=== PATIENT | male | born 1990 | race Two or more races ===

== ENCOUNTER 2016-05-23 12:05 | Day surgery (SDC) | payer OTHER ==
[~2016-05-23 12:05] MED LIST: DEXAMETHASONE SOD PHOSPHATE INJ 4 MG/1 ML VIAL ONE; GLYCOPYRROLATE INJ 0.4 MG/2 ML VIAL ONE; LIDOCAINE 2% INJ-PF (20 MG/ML) 10 ML AMPUL ONE; METOCLOPRAMIDE HCL INJ/PF 10 MG/2 ML SDV ONE; NEOSTIGMINE METHYLSULFATE 10 MG/10 ML VIAL ONE; ONDANSETRON HCL INJ/PF 4 MG/2 ML SDV ONE; SUCCINYLCHOLINE CHLORIDE INJ 200 MG/10 ML VIAL ONE
[2016-05-23] MEDS ORDERED: OXYMETAZOLINE HCL 0.05% NASAL SPRAY 15 ML BOTTLE ONE ×2 (12:14→15:05)
[2016-05-23] MEDS ORDERED: LIDOCAINE 1%/EPINEPHRINE INJ 20 ML VIAL ONE ×2 (12:14→15:06)
[2016-05-23] MEDS ORDERED: MIDAZOLAM 2 MG/2 ML INJ ONE ×2 (13:04→15:11)
[2016-05-23] MEDS ORDERED: FENTANYL CITRATE INJ/PF 100 MCG/2 ML AMPUL ONE (13:04)
[2016-05-23] MEDS ORDERED: CARBOXYMETHYLCELLULOSE SOD 0.5% 0.4 ML DROPERETTE ONE (13:04)
[2016-05-23] MEDS ORDERED: DEXAMETHASONE SOD PHOS INJ 10 MG/1 ML VIAL ONE (13:05)
[2016-05-23] MEDS ORDERED: ONDANSETRON HCL INJ/PF 4 MG/2 ML SDV ONE (13:05)
[2016-05-23] MEDS ORDERED: PROPOFOL INJ 200 MG/20 ML VIAL IV ONE ×2 (13:05→15:12)
[2016-05-23] MEDS ORDERED: SUCCINYLCHOLINE CHLORIDE INJ 200 MG/10 ML VIAL ONE (13:05)
[2016-05-23] MEDS ORDERED: DIPHENHYDRAMINE HCL 50 MG/ML VIAL ONE (13:44)
[2016-05-23] MEDS ORDERED: FENTANYL CITRATE INJ/PF 250 MCG/5 ML AMPULE ONE (15:11)
[2016-05-23] MEDS ORDERED: MORPHINE SULFATE 10 MG/ML INJ ONE (15:12)
[2016-05-23] MEDS ORDERED: ACETAMINOPHEN 100 ML IV ONE (15:35)
[2016-05-23] MEDS ORDERED: DIPHENHYDRAMINE HCL 50 MG/ML VIAL IV PRN ×2 (16:14→16:15)
[2016-05-23] MEDS ORDERED: MEPERIDINE HCL/PF INJ 25 MG/1 ML DISP.SYRIN IV PRN ×2 (16:14→16:15)
[2016-05-23] MEDS ORDERED: PROMETHAZINE HCL INJ 25 MG/1 ML VIAL IV PRN ×4 (16:14→16:15)
[2016-05-23] MEDS ORDERED: FENTANYL CITRATE INJ/PF 100 MCG/2 ML AMPUL IV PRN ×6 (16:14→16:15)
[2016-05-23] MEDS ORDERED: MORPHINE SULFATE 10 MG/ML INJ IV PRN ×2 (16:14→16:15)
[2016-05-23] MEDS ORDERED: OXYCODONE-ACETAMINOPHEN 5-325 MG TABLET PO PRN ×4 (16:14→16:15)
[2016-05-23] MEDS ORDERED: HYDROCODONE/ACETAMINOPHEN 5-325 MG TABLET PO PRN ×2 (16:46)
[2016-05-23] MEDS ORDERED: ONDANSETRON HCL INJ/PF 4 MG/2 ML SDV IV PRN (16:47)
--- NOTE | 2016-05-23 16:53 | [facility] OPERATIVE REPORT E ---
[facility] NAME: PAYTON QUIJANO AGE: 26Y DATE OF SURGERY: 05/23/2016 ROOM: PREOPERATIVE DIAGNOSES: NASAL SEPTAL DEVIATION. INFERIOR TURBINATE HYPERTROPHY. POSTOPERATIVE DIAGNOSES: NASAL SEPTAL DEVIATION. INFERIOR TURBINATE HYPERTROPHY. OPERATION: Septoplasty. Bilateral submucous reduction of the inferior turbinate soft tissue. Bilateral therapeutic outfracture of the inferior turbinates. SURGEON: ANANYA FERREIRA M.D. ANESTHESIA: General endotracheal. ESTIMATED BLOOD LOSS: 50 mL. COMPLICATIONS: None. INTRAOPERATIVE FINDINGS: Right nasal septal deviation on the caudal and midseptum aspect with a maxillary crest spur. Left greater than right inferior turbinate hypertrophy. INDICATIONS FOR PROCEDURE: A 26-year-old with a right-sided fixed nasal obstruction that has been causing functional deficits during aerobic activity and sleeping. Physical examination and nasal endoscopy was as above. We discussed both surgical and nonsurgical options to treat this issue. PROCEDURE IN DETAIL: The patient was met in the preoperative holding area and all questions were answered and consent was verified. The patient was then brought back to the operating room and placed supine on the operating table and general endotracheal anesthesia was induced without difficulty. The nasal cavity was decongested with oxymetazoline and the patient was prepped and draped in the standard fashion. Operative time-out was performed. The nasal septum was then infiltrated with 1% lidocaine with 1:100,000 epinephrine on both sides. The inferior turbinates were similarly injected with lidocaine with epinephrine. A right-sided hemitransfixion incision was then carried out and bilateral submucoperichondrial flaps were elevated from the caudal edge of the septum cranially. A vertical incision in the septal cartilage was carried out 1 cm posterior to the caudal edge of the septum and a rectangular piece of cartilaginous septum was resected using a swivel knife. The deviation spanned the vomer as well as a maxillary crest spur and these were removed piecemeal using bony rongeurs. The last remnant of the vomer deviation was relocated with a Stephen elevator. The dorsal aspect of the septum was also revised and weakened with controlled incisions to reduce cartilage memory. These maneuvers restored good patency to both nasal cavities. The resected septum cartilage was morselized and replaced between the flaps, which were reapproximated with a quilting stitch of fast gut suture. The hemitransfixion incision was closed with interrupted chromic suture. I then turned my attention to the inferior turbinate reduction by performing a small incision at the face of the turbinates, dissecting a submucosal tunnel over the turbinate bone and carrying out a submucous reduction using a 2.9 mm microdebrider blade from caudal to cranial directions. The turbinate bones were then outfractured with a Underwood elevator. The nasal cavities and nasopharynx were suctioned and Maya splints were placed on each side and secured anteriorly with Prolene. The patient was turned over to anesthesia team for reversal and extubation, tolerated the procedure well. DICTATING PHYSICIAN: ANANYA FERREIRA M.D. [id number] PHY#: [id number] ID: [id number] JOB#: [id number] ACCT: [id number] cc:ANANYA FERREIRA M.D. >
[2016-05-23 18:07] VITALS: BP 123/79
== END 2016-05-23 18:05 | disposition home or self-care (01) ==
LOC: SC 12:05 → EDSEX 13:30 → SC 18:05
PROVIDERS: ATTEND Otolaryngology
PROC: 09TL8ZZ Resection of Nasal Turbinate, Via Natural or Artificial Opening Endoscopic (ICD-10-PCS; 2016-05-23)
PROC: 09BM4ZZ Excision of Nasal Septum, Percutaneous Endoscopic Approach (ICD-10-PCS; principal; 2016-05-23 15:30)
DX: J34.2 Deviated nasal septum (principal); J34.3 Hypertrophy of nasal turbinates; Z88.0 Allergy status to penicillin; Z88.3 Allergy status to other anti-infective agents; Z87.891 Personal history of nicotine dependence
CPT/HCPCS: 30520; 30140; J2250; J1100; J3010; J3490 ×3; J2765; J2270; J0330; J2405; J2704; J0131; 160; J1200